=== PATIENT | male | born 1990 | race Caucasian/White ===

== ENCOUNTER 2019-12-31 22:22 | Emergency (ER) | payer OTHER ==
[~2019-12-31] VITALS: Ht 182.9 cm; Wt 117.9 kg
[2020-01-01 00:53] LABS: URINE BILIRUBIN NEGATIVE (Negative); URINE BLOOD NEGATIVE (Negative); URINE CLARITY CLEAR; URINE COLOR YELLOW; URINE GLUCOSE-RANDOM NEGATIVE (Negative); URINE KETONES NEGATIVE (Negative); URINE LEUKOCYTES-REFLEX NEGATIVE (Negative); URINE NITRITE-REFLEX NEGATIVE (Negative); URINE PROTEIN TRACE (Negative); URINE SPECIFIC GRAVITY >= 1.030 (1.005-1.030); URINE UROBILINOGEN 0.2 E.U./dl (0.2-1.0)
[2020-01-01 01:00] LABS: AMP/METHAMP Negative (Negative); BARBITURATES Negative (Negative); BENZODIAZEPINES Negative (Negative); COCAINE Negative (Negative); METHADONE Negative (Negative); OPIATES Negative (Negative); PCP Negative (Negative); THC Negative (Negative)
[2020-01-01 02:14] LABS: ABSOLUTE BASOPHILS 0.1 thou/uL (0.0-0.2); ABSOLUTE EOSINOPHILS 0.2 thou/uL (0.0-0.7); ABSOLUTE LYMPHOCYTES 1.5 thou/uL (0.8-5.3); ABSOLUTE MONOCYTES 0.9 thou/uL (0.0-1.2); ABSOLUTE NEUTROPHILS 7.3 thou/uL (1.6-8.1); BASOPHILS 0.5 %; EOSINOPHILS 2.3 %; HEMATOCRIT 44.2 % (42.0-52.0); HEMOGLOBIN 15.3 gm/dL (14.0-18.0); LYMPHOCYTES 15.3 %; MCH 28.5 pg (26.0-34.0); MCHC 34.6 g/dL (28.0-37.0); MCV 82.5 fL (80.0-100.0); MONOCYTES 8.9 %; MPV 8.5 fl. (7.2-11.1); NUCLEATED RBCS 0 /100WBC; PLATELET COUNT* 258 thou/uL (150-400); RBC 5.36 mil/uL (4.50-6.00); WBC 10.1 thou/uL (4.0-11.0)
[2020-01-01 02:23] LABS: CALCIUM 7.6 mg/dL (8.5-10.1); POTASSIUM 3.3 mmol/L (3.5-5.1)
[2020-01-01 02:27] LABS: ALBUMIN 3.3 g/dL (3.4-5.0); MAGNESIUM 1.9 mg/dL (1.8-2.4); TOTAL BILIRUBIN 0.5 mg/dL (<0.1-1.0)
[2020-01-01] MEDS ORDERED: FLAGYL500 M1 PO (02:33)
[2020-01-01] MEDS ORDERED: CIPROFLOXACIN500 M1 PO (02:33)
[2020-01-01] MEDS ORDERED: CARAFATE 1 GM TA1 GM PO (02:36)
[2020-01-01 03:07] VITALS: BP 109/76
--- NOTE | 2020-01-01 11:42 | EKG ---
[place] [address] ELECTROCARDIOGRAM REPORT Name: TERRENCE ENGLISH Room: [facility]#: [id number] Admission: 12/31/19 Attend Phys: Discharge: 01/01/20 Date of : 89 Date of Service: 12/31/192231 Report #: [id number] THIS REPORT FOR: //name// [facility] ED Test Date: 2019-12-31 Test Time: 22:32:04 Pat Name: TERRENCE ENGLISH Department: Room: Gender: Senior Tax Manager: NATHAN : 1990 Requested By: Nivia Hill Order Number: [id number] : Trey Diaz Measurements Intervals [place] Rate: 100 P: 26 SD: 115 QRS: -13 QRSD: 91 T: 20 QT: 336 QTc: 434 Interpretive Statements Sinus tachycardia LVH by voltage No previous ECG available for comparison Electronically Signed On 01-01-2020 11:41:32 CNS by Trey Diaz [email or web address] <ELECTRONICALLY SIGNED> By: Trey Diaz MD, [facility] 01/01/20 1141 31 31 Trey Diaz MD, FACC /EPI
== END 2020-01-01 03:10 | disposition home or self-care (01) ==
LOC: M.ERS 22:22
PROVIDERS: Emergency Medicine; Nurse Practitioner Family
DX: K52.9 Noninfective gastroenteritis and colitis, unspecified (principal); Z88.0 Allergy status to penicillin

== ENCOUNTER 2020-02-28 11:30 | Emergency (ER) | payer OTHER ==
[~2020-02-28] VITALS: Ht 154.9 cm; Wt 108.9 kg
[~2020-02-28 11:30] MED LIST: CARAFATE 1 GM TA1 GM PO; CIPROFLOXACIN500 M1 PO; FLAGYL500 M1 PO
[2020-02-28] MEDS ORDERED: ONDANSETRON HCL4 M2 PO (11:59)
[2020-02-28 12:05] VITALS: BP 150/87
== END 2020-02-28 12:06 | disposition home or self-care (01) ==
LOC: M.ERS 11:30
DX: Z02.89 Encounter for other administrative examinations (principal); K52.9 Noninfective gastroenteritis and colitis, unspecified; Z88.0 Allergy status to penicillin

== ENCOUNTER 2020-04-30 14:02 | Emergency (ER) | payer OTHER ==
[~2020-04-30] VITALS: Ht 185.4 cm; Wt 118.8 kg
[~2020-04-30 14:02] MED LIST changes: +ONDANSETRON HCL4 M2 PO
[2020-04-30 14:19] VITALS: BP 119/77
[2020-04-30] MEDS ORDERED: ZPAK PO (15:03)
== END 2020-04-30 15:10 | disposition home or self-care (01) ==
LOC: M.ERS 14:02
DX: J02.0 Streptococcal pharyngitis (principal); Z88.0 Allergy status to penicillin